=== PATIENT | male | born 1955 | race Caucasian/White ===

== ENCOUNTER → 2018-01-22 | Outpatient (CLI) | payer BC ==
[~2018-01-22] MED LIST: ALLO300T PO; AMIT10TA PO; ATEN50TA41 PO; CALC1CAP8 PO; CHOL500045 PO; EVOL140P SC; GEMF600T3 PO; IRBE300T16 PO; THYR30TA PO; magnesium malate PO; will bring a list
== END | disposition home or self-care (01) ==
LOC: CFH 13:27
PROVIDERS: ATTEND Family Medicine
DX: M25.461 Effusion, right knee (principal)

== ENCOUNTER → 2019-01-06 | Outpatient (CLI) | payer MEDICARE, BC ==
[~2019-01-06] MED LIST changes: -GEMF600T3 PO; +GEMF600T8 PO; +REGADENOSON 0.4 MG/5 ML SYRINGE ONE
== END | disposition home or self-care (01) ==
LOC: CFH 12:32
PROVIDERS: ATTEND Internal Medicine Cardiovascular Disease
DX: I25.9 Chronic ischemic heart disease, unspecified (principal); I10 Essential (primary) hypertension
CPT/HCPCS: 78452; 93017; A9502; J2785

== ENCOUNTER 2019-01-14 10:20 | Day surgery (SDC) | payer MEDICARE, BC ==
[~2019-01-14] VITALS: Ht 180.3 cm; Wt 146.4 kg
[~2019-01-14 10:20] MED LIST changes: -REGADENOSON 0.4 MG/5 ML SYRINGE ONE
[2019-01-14] MEDS ORDERED: SODIUM CHLORIDE 0.9% 1,000 ML IV SCH ×2 (11:17→13:39)
[2019-01-14] MEDS ORDERED: IRON1TAB60 PO (11:37)
[2019-01-14] MEDS ORDERED: [UNRECOGNIZED DRUG - OTHER] PO (11:37)
[2019-01-14] MEDS ORDERED: MACA500C PO (11:37)
[2019-01-14] MEDS ORDERED: NITR0.6T4 SL (11:37)
[2019-01-14] MEDS ORDERED: NAPR1TAB25 PO (11:37)
[2019-01-14] MEDS ORDERED: METO50TA82 PO (11:37)
[2019-01-14] MEDS ORDERED: ASCO250T3 PO (11:37)
[2019-01-14 12:30] LABS: BASOPHILS # (AUTO) 0.04 x10^3/uL (0-0.1); BASOPHILS % (AUTO) 1 % (0-1); EOSINOPHILS # (AUTO) 0.15 x10^3/uL (0-0.4); EOSINOPHILS % (AUTO) 2 % (1-7); LYMPHOCYTES # (AUTO) 1.72 x10^3/uL (1-3.4); LYMPHOCYTES % (AUTO) 26 % (22-44); MD NO; MEAN CORPUSCULAR HEMOGLOBIN 31.5 pg (27.5-34.5); MEAN CORPUSCULAR HGB CONC 33.9 g/dL (33.2-36.2); MEAN CORPUSCULAR VOLUME 92.8 fL (81-97); MEAN PLATELET VOLUME 9.2 fL (7.4-10.4); MONOCYTES # (AUTO) 0.72 x10^3/uL (0.2-0.8); MONOCYTES % (AUTO) 11 % (2-9); NEUTROPHILS # (AUTO) 3.97 x10^3/uL (1.8-6.8); NEUTROPHILS % (AUTO) 60 % (42-75); PLATELET COUNT 217 x10^3/uL (130-400); RED BLOOD COUNT 5.06 x10^6/uL (4.38-5.82); RED CELL DISTRIBUTION WIDTH 13.6 % (9.4-14.8)
[2019-01-14 12:33] LABS: ANION GAP 6 mmol/L (5-15); CALCIUM 9.8 mg/dL (8.5-10.1); CHLORIDE 107 mmol/L (98-107); CREATININE 1.01 mg/dL (0.7-1.3)
[2019-01-14] MEDS ORDERED: BIVALIRUDIN 250 MG ONE (12:48)
[2019-01-14] MEDS ORDERED: VERAPAMIL 2.5 MG/ML, 2ML ONE (12:48)
[2019-01-14] MEDS ORDERED: HEPARIN 1,000 UNITS/ML, 10ML ONE (12:48)
[2019-01-14] MEDS ORDERED: LIDOCAINE-MPF 1%, 5ML ONE (12:48)
[2019-01-14] MEDS ORDERED: TICAGRELOR 90 MG TABLET ONE (12:48)
[2019-01-14] MEDS ORDERED: FENTANYL PF 100 MCG/2ML ONE (12:48)
[2019-01-14] MEDS ORDERED: MIDAZOLAM 1 MG/ML, 5ML ONE (12:50)
[2019-01-14] MEDS ORDERED: LIDOCAINE 1%, 20ML ONE (12:51)
[2019-01-14] MEDS ORDERED: ACETAMINOPHEN 325 MG TABLET PO PRN (14:00)
== END 2019-01-14 16:41 | disposition home or self-care (01) ==
LOC: CACL 10:20
PROVIDERS: ATTEND Internal Medicine Cardiovascular Disease
DX: I25.10 Atherosclerotic heart disease of native coronary artery without angina pectoris (principal); M10.9 Gout, unspecified; I10 Essential (primary) hypertension; G47.30 Sleep apnea, unspecified; E03.9 Hypothyroidism, unspecified; Z95.1 Presence of aortocoronary bypass graft; E78.2 Mixed hyperlipidemia
CPT/HCPCS: 36415; 80048; 85025; 93459; 99156; 99157; C1760; C1769; C1894; J1644; J2250; J3010; Q9967; J0583

== ENCOUNTER 2019-01-15 10:36 | Outpatient (CLI) | payer MEDICARE, BC ==
[~2019-01-15 10:36] MED LIST changes: +ASCO250T3 PO; +IRON1TAB60 PO; +MACA500C PO; +METO50TA82 PO; +NAPR1TAB25 PO; +NITR0.6T4 SL; +[UNRECOGNIZED DRUG - OTHER] PO
[2019-01-15 11:13] LABS: ANION GAP 8 mmol/L (5-15); CALCIUM 9.1 mg/dL (8.5-10.1); CHLORIDE 108 mmol/L (98-107); CREATININE 1.03 mg/dL (0.7-1.3)
== END 2019-01-15 23:59 | disposition home or self-care (01) ==
LOC: LAB 10:36
PROVIDERS: ATTEND Family Medicine
DX: I10 Essential (primary) hypertension (principal); R73.09 Other abnormal glucose
CPT/HCPCS: 36415; 80048